=== PATIENT | female | born 1975 | race Asian ===

== ENCOUNTER 2020-11-10 09:27 | Emergency (ER) | payer OTHER, SELFPAY ==
--- NOTE | ~2020-11-10 | CT_ITS ---
EXAMINATION: CT HEAD WITHOUT CONTRAST CLINICAL INFORMATION: Headache. Rule out intracranial bleed, mass effect. COMPARISON: None TECHNIQUE: Contiguous axial imaging was performed from the skull base to vertex without intravenous administration of contrast. This CT examination was performed using dose optimization techniques as appropriate, variously including the following: *Automated exposure control *Adjustment of mA and/or kV according to patient size (this includes techniques or standardized protocols for targeted exams where dose is matched to indication/reason for exam; i.e. extremities or head) *Use of iterative reconstruction technique DLP: 646 mGy-cm FINDINGS: There is no evidence of acute intracranial hemorrhage or territorial infarction. No abnormal mass effect or midline shift is seen. Feng to white matter differentiation is well preserved. No extra-axial fluid collections are identified. The ventricles are normal in size. There is no abnormal attenuation within the brain parenchyma. The osseous structures and soft tissues are normal. The mastoid air cells and visualized portions of the paranasal sinuses are well aerated. Small mucous retention cyst along the anterior margin of the visualized left maxillary sinus is partially seen. CT/CT head/brain wo con IMPRESSION: No acute intracranial pathology. Specifically, there is no evidence of acute intracranial hemorrhage. Essentially unremarkable examination.
[2020-11-10 09:35] VITALS: BP 130/93; PULSE 68; RESP 19; TEMP 35.9; O2SAT 98; BMI 36.6
[2020-11-10 10:23] LABS: Glucose Urine UA NEG (NEG); Leukocyte Esterase Urine NEG (NEG); Nitrite Urine NEG (NEG); PH 5.5 (5.0-8.0); Urine Blood 3+ (NEG); Urine Ketones NEG (NEG); Urine Protein NEG (NEG-TRACE)
[2020-11-10 10:25] LABS: Appearance Urine HAZY; Color Urine YELLOW
[2020-11-10 10:26] LABS: UPreg QC Valid YES; Urine Pregnancy NEGATIVE (NEGATIVE)
[2020-11-10 10:35] LABS: Squamous Epithelial Cell Urine TRACE /LPF; WBC Urine 0 /HPF (0-4)
--- NOTE | 2020-11-10 11:13 | ED_ITS ---
HPI - General Adult General Chief complaint: General Medical Stated complaint: HIGH BLOOD PRESSURE Time Seen by Provider: 11/10/20 11:13 Source: patient Mode of arrival: ambulatory Limitations: no limitations History of Present Illness HPI narrative: 44-year-old female who presents emergency department for evaluation of headache, dysuria and elevated blood pressure. Patient states she has been experiencing headaches for approximately 2-3 weeks. She states that she gets them daily when she wakes up in the morning. The headache starts in the back of her neck and radiates to the front of her head. She describes the pain as a throbbing sensation which is constant and can last all day. She states the pain is 7-10 at its worst. The pain is associated with dizziness and a audible pulse in her left ear. She states she has been feeling fatigued. She denies any weight loss or weight gain. She denied fever, chills, nausea, vomiting associated with her headaches. Patient is also complaining of dysuria. She has noted painful urination which she describes as a burning sensation x1 week. She states that she has been urinating more frequently and after urinating she feels the need to urinate again but only produces small amount of urine. The patient states she started her menses today. She states that she had an urinalysis 1 week prior that was positive for white blood cells but did not start antibiotics. She denies any vaginal discharge. She denies abdominal or back pain. The patient has a history of essential hypertension and has been on Norvasc 5 mg daily for 2 years. She states that she has been checking her blood pressure over the past 1-2 weeks and she has had elevated blood pressures with her high his blood pressure being 180/110. Related Data Previous Rx's Medication Instructions Recorded doxycycline hyclate 100 mg PO Q12H 10 Days #14 tab 11/10/20 phenazopyridine [Pyridium] 200 mg PO TID 3 Days #9 tab 11/10/20 Allergies Allergy/AdvReac Type Severity Reaction Status Date / Time No Known Allergies Allergy Unverified 02/28/20 17:44 Review of Systems Review of Systems: Yes all other systems are reviewed and are negative [facility] Past Medical History [facility] Narrative: Past medical history: Hypertension, hyperlipidemia. Past surgical history bilateral tubal ligation, cholecystectomy. Social history: Patient smokes 1/2 pack of cigarettes per day times 20 years. She occasionally drinks alcohol. She denies drug use. Medical History High cholesterol Hypertension Surgical History H/O tubal ligation Social History Social History Advance Directives: Yes Advance Directives Information Provided: Yes Advance Directives on File: No Patient : No Physical Exam Vital Signs: Vital Signs: Last Vital Signs Temp 96.6 F L 11/10/20 09:35 Pulse 58 11/10/20 12:49 Resp 18 11/10/20 12:49 BP 128/76 11/10/20 12:49 Pulse Ox 98 11/10/20 09:35 Body Mass Index 36.6 Const: General: cooperative Orientation/consciousness: oriented to person and oriented to place Limitations: no limitations HENMT: Head: Yes normal to inspection, Yes normocephalic and Yes atraumatic Ears: external ears normal General nose exam: Normal external nose present Face and sinus: Yes normal facial exam Mouth: Normal oral and palatal mucosa present Throat: Yes posterior oropharynx normal Eyes: Periorbital: periorbital findings normal Eyelids: Yes eyelids normal Conjunctivae: conjunctivae normal Sclerae: sclerae normal Corneas: corneas normal Pupils: Equal, round and reactive pupils present Direct Ophthalmoscopy: normal light reflex Neck: Other: The patient has tenderness with palpation of the trapezius muscles bilaterally at the assertion of the occiput. Neck: Yes full ROM, Yes no lymphadenopathy, Yes no meningeal signs, Yes trachea midline and Yes supple Chest: Chest palpation & inspection: normal inspection of the chest and normal palpation of entire chest wall Resp: Effort & Inspection: normal respiratory effort and able to speak in complete sentences Auscultation: clear to auscultation bilaterally Cardio: Rate: regular rate Rhythm: regular rhythm Heart sounds: S1 normal heart sound present, S2 normal heart sound present and no murmurs GI: Inspection: Yes normal to inspection Palpation (GI): Soft to palpation, nontender, no guarding, not rigid and No hepatosplenomegaly present : General: Yes no CVA tenderness Back/Spine/Pelvis: Back: no CVA tenderness Cervical Spine: normal cervical lordosis Thoracic/Lumbar Spine: thoracic and lumbar spine normal to inspection Skin: Lesions: no lesions Rashes: no rashes Wounds: no wounds Neuro: General: oriented to person, oriented to place and no meningeal signs Cranial nerves: Yes CN's II-XII intact bilaterally and Yes Equal, round and reactive pupils present Cognition (Neuro): normal cognition Motor exam (neuro): 5/5 motor strength present throughout Extrem: General: Yes normal to inspection and Yes full ROM Psych: Appearance: well kempt Mental Status: mental status grossly normal Speech and movement: Normal speech and movement present Affect: normal affect Attitude: cooperative Thought process: Normal thought process present Thought content: Normal thought content present Course Course Course Narrative: 44-year-old female who presents emergency department for evaluation of headache times 2-3 weeks, dysuria x1 week and elevated blood pressures. Vital signs revealed an elevated BP of 130/93, otherwise unremarkable. Physical examination did reveal some tenderness with the palpation of the occiput and trapezius muscles otherwise was unremarkable. The patient had a urinalysis which revealed positive blood, microscopic revealed 15-29 RBCs and 0 WBCs suggested he does not have urinary tract infection. Given her symptoms however I suspect that she may have and nonspecific urethritis and I did discuss empiric antibiotic treatment with doxycycline and she did agree. I will obtain a CT scan of the patient's brain to rule out bleed, stroke, mass effect. 1414: The patient's CT scan of the brain was unremarkable. Urine test was negative. Urinalysis revealed no evidence for your infection. I did discuss nonspecific urethritis with the patient and the patient will be treated with doxycycline 100 mg twice a day for 7 days and Pyridium 200 mg 3 times a day as needed for pain. She was also advised to take Tylenol and ibuprofen for her headache and for her dysuria. She was given printed and verbal instructions and discharged home. Medical Decision Making Lab Data Labs: Lab Results 11/10/20 11/10/20 Range/Units 10:09 10:09 Urine Color YELLOW Urine Appearance HAZY Urine pH 5.5 (5.0-8.0) Ur Specific [place] 1.020 (1.005-1.025) Urine Protein NEG (NEG-TRACE) MG/DL Urine Glucose (UA) NEG (NEG) MG/DL Urine Ketones NEG (NEG) MG/DL Urine Blood 3+ H (NEG) Urine Nitrite NEG (NEG) Ur Leukocyte Esterase NEG (NEG) Urine RBC 15-29 H (0) /HPF Urine WBC 0 (0-4) /HPF Ur Squamous Epith Cells TRACE /LPF Urine Bacteria NONE /LPF Urine Test NEGATIVE (NEGATIVE) Discharge Plan Discharge Clinical Impression: Urethritis Headache Qualifiers: Headache type: unspecified Headache chronicity pattern: acute headache Intractability: not intractable Qualified Code(s): R51.9 - Headache, unspecified Hypertension Qualifiers: Hypertension type: essential hypertension Qualified Code(s): I10 - Essential (primary) hypertension Instructions: Acute Headache (ED) Additional Instructions: The CT scan of your brain was normal which is reassuring. Your urinalysis/microscopic exam revealed red blood cells only, you did not have any white blood cells or bacteria suggesting that you do not have a urine infection. Your symptoms are consistent with inflammation/infection of the urethra (the tube that you pee through). I want to treat you with an antibiotic to see if this improves your symptoms. Take doxycycline 100 mg pills, 1 pill twice a day for 7 days. Take Pyridium(phenazopyridine) 200 mg pills, 1 pill 3 times a day as needed for burning /discomfort with urination. Take ibuprofen 200 mg pills, 3 pills every 6 hours as needed for pain. Take Tylenol (acetaminophen) 500 mg pills, 2 pills every 4 to 6 hours as needed for pain. Follow-up with your doctor in 2 days. Please return to the emergency department if your symptoms get worse or if you develop any symptoms that are concerning to you. Prescriptions: New doxycycline hyclate 100 mg tablet 100 mg PO Q12H 10 Days Qty: 14 RF: 0 phenazopyridine [Pyridium] 200 mg tablet 200 mg PO TID 3 Days Qty: 9 RF: 0
[2020-11-10 12:49] VITALS: BP 128/76; PULSE 58; RESP 18
== END 2020-11-10 14:40 | disposition home or self-care (01) ==
PROVIDERS: Emergency Provider Emergency Medicine Emergency Medical Services; PCP Internal Medicine
DX: N34.2 Other urethritis (principal); R51.9 Headache, unspecified; I10 Essential (primary) hypertension; E78.5 Hyperlipidemia, unspecified
CPT/HCPCS: 70450; 81001; 81025; 99283; 99284

== ENCOUNTER 2021-04-06 10:56 | Emergency (ER) | payer OTHER, SELFPAY ==
[2021-04-06 11:07] VITALS: BP 136/83; PULSE 89; RESP 16; TEMP 36.9; O2SAT 98; BMI 35.6
--- NOTE | 2021-04-06 13:00 | ED_ITS ---
HPI - General Adult General Chief complaint: General Medical Stated complaint: Hemorrhoid Time Seen by Provider: 04/06/21 12:59 Source: patient Mode of arrival: ambulatory Limitations: no limitations History of Present Illness HPI narrative: Patient presents to ED for rectal pain due to hemorrhoids. Patient states last week multiple diarrhea which caused her hemorrhoids to become painful. Patient came to the ED for evaluation. Patient states no abdominal pain or any present rectal bleeding. Patient denies any trauma. Patient states history of hemorrhoids Related Data Previous Rx's Medication Instructions Recorded doxycycline hyclate 100 mg tablet 100 mg PO Q12H 10 Days #14 tab 11/10/20 phenazopyridine 200 mg tablet 200 mg PO TID 3 Days #9 tab 11/10/20 (Pyridium) docusate sodium 100 mg capsule 100 mg PO BID 7 Days #14 cap 04/06/21 (Colace) lidocaine 2 %-hydrocortisone 2 1 appl [place] BID PRN 7 Days #7 ea 04/06/21 %-aloe vera rectal kit ([place]) naproxen 500 mg tablet 500 mg PO BID PRN #20 tab 04/06/21 Allergies Allergy/AdvReac Type Severity Reaction Status Date / Time No Known Allergies Allergy Unverified 02/28/20 17:44 Review of Systems Review of Systems: Yes all other systems are reviewed and are negative Constitutional: Constitutional: Reports as per HPI and Reports no additional constitutional complaints Eyes: Eyes: Reports as per HPI and Reports no additional eye complaints ENT: Reports system reviewed and no additional complaints, except as doc umented and Reports as per HPI Cardiovascular: Cardiovascular: Reports as per HPI and Reports no additional cardiovascular complaints Respiratory: Respiratory: Reports as per HPI and Reports no additional respiratory complaints Gastrointestinal: Gastrointestinal: Reports as per HPI and Reports no additional gastrointestinal complaints Comments: Hemorrhoids Genitourinary: Genitourinary: Reports no additional female genitourinary complaints and Reports as per HPI Musculoskeletal: Musculoskeletal: Reports no additional musculoskeletal complaints and Reports as per HPI Neurologic: Reports system reviewed and no additional complaints, except as documented and Reports as per HPI Psychiatric: Psychiatric: Reports no additional psychiatric complaints and Reports as per HPI [facility] Past Medical History Medical History High cholesterol Hypertension Surgical History H/O tubal ligation Social History Social History Advance Directives: No Advance Directives Information Provided: No Patient : No Physical Exam Vital Signs: Vital Signs: Last Vital Signs Temp 98.4 F 04/06/21 11:07 Pulse 89 04/06/21 11:07 Resp 16 04/06/21 11:07 BP 136/83 04/06/21 11:07 Pulse Ox 98 04/06/21 11:07 Body Mass Index 35.6 Const: General: cooperative, healthy appearing, comfortable, no acute distress, well developed, alert, awake and Physically active HENMT: Head: Yes normal to inspection, Yes No palpable skull fracture present, Yes normocephalic, Yes atraumatic and No abrasion Eyes: General: appearance normal, both eyes and all related structures Neck: Neck: Yes normal visual inspection, Yes full ROM, Yes no lymphadenopathy, Yes no meningeal signs, Yes trachea midline, Yes supple, No anterior neck swelling and No tender Chest: Chest palpation & inspection: normal inspection of the chest and normal palpation of entire chest wall Resp: Effort & Inspection: normal respiratory effort and able to speak in complete sentences Auscultation: clear to auscultation bilaterally Cardio: Jugular venous distension: no JVD Heart sounds: S1 normal heart sound present and S2 normal heart sound present GI: Other: Negative for any anal abscess. Hemhrroids are pink and not dusky. Inspection: Yes normal to inspection and No abdominal wall ecchymosis Palpation (GI): Soft to palpation, not firm, nontender, no guarding and not rigid Rectal Exam - Female: External hemorrhoid(s) present (To external hemorrhoids that are tender,but pink. does not appear thrombose), No fecal impaction, No Lesions present (GI) and No Anal fissure(s) present : General: No CVA tenderness Back/Spine/Pelvis: Back: No CVA tenderness and No back tenderness Skin: General skin exam: no rashes or lesions noted and elasticity normal Neuro: General: gait normal, no meningeal signs and CN's II-XI intact bilaterally Cranial nerves: Yes CN's II-XII intact bilaterally Extrem: General: Yes normal to inspection and Yes full ROM Psych: Appearance: grossly normal, well kempt and not disheveled Course Course Course Narrative: History physical exam does not indicate thrombosed hemorrhoids. Hemorrhoid is tender but pink. No indication for excision. Reevaluation(s) Reevaluation #1: Patient informed to follow-up with surgery that she will be referred to by us. Patient given [place]. Patient will be discharged with Colace and pain meds. Patient informed to return to ED if symptoms worsen, profuse rectal bleeding, or any other concerning symptoms. Time: 13:04 Medical Decision Making MDM Narrative Medical decision making narrative: External hemmhoirds Discharge Plan Discharge Clinical Impression: External hemorrhoids Patient Disposition: Home, Self-Care Instructions: Hemorrhoids (ED), Sitz [place] (DC) Additional Instructions: Return to the ED immediately for worsening rectal pain, profuse bleeding, fever, chills, abdominal pain, nausea, vomiting, or any other concerning symptoms. Prescriptions: New [place] Kit 2-2 % kit 1 appl VT BID PRN (Reason: hemmorhoids) 7 Days Qty: 7 RF: 0 docusate sodium [Colace] 100 mg capsule 100 mg PO BID 7 Days Qty: 14 RF: 0 naproxen 500 mg tablet 500 mg PO BID PRN (Reason: pain) Qty: 20 RF: 0 No Action doxycycline hyclate 100 mg tablet 100 mg PO Q12H 10 Days Qty: 14 RF: 0 phenazopyridine [Pyridium] 200 mg tablet 200 mg PO TID 3 Days Qty: 9 RF: 0 Referrals: Sudheer Garza MD [Physician] - 2 days (Rectal pain due to external hemorrhoids that are tender but not yet thrombosed) Stand Alone Forms: Work/School Release Interventions: ED Discharge Assessment Last Done: 04/06/21 13:26 Discharge Date/Time: 04/06/21 13:27 Print Language: Malian
--- NOTE | 2021-04-06 13:20 | PC.NURSE ---
assisted md with rectal exam. pt tolerated procedure well.
== END 2021-04-06 13:27 | disposition home or self-care (01) ==
PROVIDERS: Emergency Provider Emergency Medicine; PCP Internal Medicine
DX: K64.4 Residual hemorrhoidal skin tags (principal); I10 Essential (primary) hypertension
CPT/HCPCS: 99283

== ENCOUNTER 2022-03-05 16:01 | Emergency (ER) | payer OTHER, SELFPAY ==
[2022-03-05 16:03] VITALS: BP 150/74; PULSE 84; RESP 18; TEMP 36.2; O2SAT 97; BMI 34.7
== END 2022-03-05 17:41 | disposition left against medical advice (07) ==
PROVIDERS: Emergency Provider Emergency Medicine
DX: S09.90XA Unspecified injury of head, initial encounter (principal); S39.92XA Unspecified injury of lower back, initial encounter; W10.8XXA Fall (on) (from) other stairs and steps, initial encounter; Y93.9 Activity, unspecified; Y92.9 Unspecified place or not applicable; Y99.9 Unspecified external cause status
CPT/HCPCS: 99281

== ENCOUNTER 2022-03-09 06:58 | Emergency (ER) | payer OTHER, SELFPAY ==
--- NOTE | ~2022-03-09 | CT_ITS ---
EXAMINATION: CT HEAD WITHOUT CONTRAST CLINICAL INFORMATION: Hit head COMPARISON: CT head from 11/10/2020 TECHNIQUE: Contiguous axial imaging was performed from the skull base to vertex without intravenous administration of contrast. This CT examination was performed using dose optimization techniques as appropriate, variously including the following: *Automated exposure control *Adjustment of mA and/or kV according to patient size (this includes techniques or standardized protocols for targeted exams where dose is matched to indication/reason for exam; i.e. extremities or head) *Use of iterative reconstruction technique DLP: 1216 mGy-cm FINDINGS: There is no evidence of acute intracranial hemorrhage or territorial infarction. No abnormal mass effect or midline shift is seen. Feng to white matter differentiation is well preserved. No extra-axial fluid collections are identified. The ventricles are normal in size. There is no abnormal attenuation within the brain parenchyma. The osseous structures and soft tissues are normal. The mastoid air cells and visualized portions of the paranasal sinuses are well aerated. CT/CT cervical spine wo IV con IMPRESSION: No acute intracranial pathology. EXAMINATION: Noncontrast CT scan of the cervical spine. INDICATION: Hit head COMPARISON: None. TECHNIQUE: Helical, multidetector axial images were obtained from the occiput to the upper thorax. Coronal and sagittal reformats of the cervical spine were provided for interpretation. DLP: 1216 mGy-cm FINDINGS: No acute fractures or dislocations of the cervical spine are seen. Straightening of normal cervical curvature which may be secondary to patient positioning versus muscle spasm. Anatomic alignment and positioning of the vertebral bodies and posterior elements is noted. The atlantoaxial joint and craniovertebral articulations are normal without evidence of subluxation. There is no prevertebral soft tissue swelling. The thyroid gland and visualized portions of the lung apices and mediastinum are unremarkable. IMPRESSION: 1. No acute visible fracture or dislocation. 2. Straightening of normal cervical curvature which may be secondary to patient positioning versus muscle spasm.
--- NOTE | ~2022-03-09 | XR_ITS ---
EXAMINATION: XR LUMBOSACRAL SPINE CLINICAL INFORMATION: Fall COMPARISON: 09/20/2019 TECHNIQUE: Three views of the lumbosacral spine. FINDINGS: There is minimal grade 1 anterolisthesis of L4 on L5. Alignment throughout the lumbar spine is otherwise anatomic. Vertebral body heights are maintained. A few minimal scattered endplate osteophytes are present. There is mild to moderate disc space narrowing at L5-S1. There is suspected facet arthropathy of the lower lumbar spine. Sacroiliac joints appear intact with degenerative change. XR/XR lumbar spine 2-3V IMPRESSION: No acute findings identified. Chronic appearing/degenerative changes of the lower lumbar spine.
[2022-03-09 07:03] VITALS: BP 153/100; PULSE 76; RESP 18; TEMP 36.7; O2SAT 98; BMI 34.7
[2022-03-09 09:32] VITALS: BP 134/79; PULSE 69; RESP 16; TEMP 36.6; O2SAT 98
--- NOTE | 2022-03-09 11:00 | ED.GENADULT ---
HPI - General Adult General Chief complaint: Fall Stated complaint: FALL HEAD INJ Time Seen by Provider: 03/09/22 09:01 Source: patient Mode of arrival: ambulatory Limitations: no limitations History of Present Illness HPI narrative: 46-year-old healthy woman presents to the ED for posterior headache/neck pain and lower back pain after falling down stairs. Patient states she fell last and fell unto her back and back of head when she slipped on the stairs in the rain. patient was sent to the ED for PCP for head CT scan to rule out bleed. Patient DENIES ANY FACIAL DROOP, SLURRED SPEECH, WEAKNESS, DIZZINESS, CHEST PAIN, SHORTNESS OF BREATH, ABDOMINAL PAIN, RECTAL BLEEDING, VOMITING BLOOD, OR ANY OTHER CONCERNING SYMPTOMS. Related Data Previous Rx's Medication Instructions Recorded doxycycline hyclate 100 mg tablet 100 mg PO Q12H 10 days #14 tabs 11/10/20 phenazopyridine 200 mg tablet 200 mg PO TID 3 days #9 tabs 11/10/20 (Pyridium) docusate sodium 100 mg capsule 100 mg PO BID 7 days #14 caps 04/06/21 (Colace) lidocaine 2 %-hydrocortisone [address] BID PRN hemmorhoids 7 04/06/21 %-aloe vera rectal kit ([place]) days #7 ea naproxen 500 mg tablet 500 mg PO BID PRN pain #20 tabs 04/06/21 naproxen 500 mg tablet 500 mg PO BID PRN pain 10 days #20 03/09/22 tabs prednisone 20 mg tablet 40 mg PO DAILY 5 days #10 tabs 03/09/22 Allergies Allergy/AdvReac Type Severity Reaction Status Date / Time No Known Allergies Allergy Unverified 02/28/20 17:44 Review of Systems Review of Systems: FALL POSTERIOR HEADACHE/NECK PAIN. LOWER BACK PAIN Yes all other systems are reviewed and are negative PMF Past Medical History Medical History High cholesterol Hypertension Surgical History H/O tubal ligation Social History Social History Patient Tobacco Use Status: Current everyday Tobacco user Advance Directives: No Advance Directives Information Provided: No Patient : No Physical Exam ED Vital Signs: Vital Signs - 24 hr 03/09/22 07:03 03/09/22 09:32 Temperature 98.1 F 98 F Pulse Rate 76 69 Respiratory Rate 18 16 Blood Pressure 153/100 H 134/79 Pulse Oximetry 98 98 Oxygen Delivery Method Room Air Room Air BMI result Body Mass Index 34.7 Const General: cooperative, healthy appearing, comfortable, no acute distress, well developed, alert and awake Orientation/consciousness: oriented to time and patient oriented x3 HENMT Head: Yes normal to inspection, Yes No palpable skull fracture present, Yes normocephalic, Yes atraumatic and No abrasion Head images: 1. TENDERNESS ON PALPATION. Eyes General: appearance normal, both eyes and all related structures Neck Neck: Yes normal visual inspection, Yes full ROM, Yes no lymphadenopathy, Yes no meningeal signs, Yes trachea midline, Yes supple, No anterior neck swelling and Yes tender (POSTERIOR CIERVICAL) Chest Chest palpation & inspection: normal inspection of the chest and normal palpation of entire chest wall Resp Effort & Inspection: normal respiratory effort and able to speak in complete sentences Auscultation: clear to auscultation bilaterally Cardio Jugular venous distension: no JVD Heart sounds: S1 normal heart sound present and S2 normal heart sound present GI Inspection: Yes normal to inspection and No abdominal wall ecchymosis Palpation (GI): Soft to palpation, not firm, nontender, no guarding and not rigid General: No CVA tenderness and Yes no CVA tenderness Back/Spine/Pelvis Back: no CVA tenderness, No CVA tenderness and back tenderness (LUMBAR) Skin General skin exam: no rashes or lesions noted, elasticity normal and turgor normal Neuro General: oriented to time, patient oriented x3, gait normal, no meningeal signs and CN's II-XI intact bilaterally Cranial nerves: Yes CN's II-XII intact bilaterally Extrem General: Yes normal to inspection and Yes full ROM Psych Appearance: grossly normal, well kempt and not disheveled Course Course Course Narrative: PATIENT WELL-APPEARING. WILL SEND FOR IMAGING. Patient's main complaint is posterior neck and lower back pain after falling this past . Reevaluation(s) Reevaluation #1: IMAGES ARE NORMAL. PATIENT IS SAFE FOR DISCHARGE Time: 11:33 Medical Decision Making MDM Narrative Medical decision making narrative: FALL Discharge Plan Discharge Clinical Impression: Fall, Head injury Patient Disposition: Home, Self-Care Instructions: Head Injury (ED), Fall Prevention (ED) Additional Instructions: YOUR IMAGES CAME BACK NORMAL. PLEASE FOLLOW-UP WITH YOUR PRIMARY CARE PROVIDER. RETURN TO THE ED IMMEDIATELY FOR URINARY/BOWEL INCONTINENCE, NAUSEA, VOMITING, CHEST PAIN, SHORTNESS OF BREATH, SEVERE HEADACHE, PHOTOPHOBIA, BLURRY VISION, NECK STIFFNESS, FEVER, CHILLS ABDOMINAL PAIN, RECTAL BLEEDING, VOMITING BLOOD, BLOOD IN STOOL, OR ANY OTHER CONCERNING SYMPTOMS. Prescriptions: New naproxen 500 mg tablet 500 mg PO BID PRN (Reason: pain) 10 Days Qty: 20 0RF prednisone 20 mg tablet 40 mg PO DAILY 5 Days Qty: 10 0RF No Action doxycycline hyclate 100 mg tablet 100 mg PO Q12H 10 Days Qty: 14 0RF phenazopyridine [Pyridium] 200 mg tablet 200 mg PO TID 3 Days Qty: 9 0RF [place] Kit 2-2 % kit [address] BID PRN (Reason: hemmorhoids) 7 Days Qty: 7 0RF docusate sodium [Colace] 100 mg capsule 100 mg PO BID 7 Days Qty: 14 0RF naproxen 500 mg tablet 500 mg PO BID PRN (Reason: pain) Qty: 20 0RF Stand Alone Forms: Work/School Release Interventions: ED Discharge Assessment Last Done: 03/09/22 12:03 Discharge Date/Time: 03/09/22 12:04 Print Language: Japanese
--- NOTE | 2022-03-09 11:16 | PC.NURSE ---
patient a/ox4 . valerie . heart rate regular 92 beats . lungs clear . skin pink warm and dry . abdomen soft . non tender . positive bowel sounds in all quadrants . patients reports fall at home down a few stairs hitting back of neck , feeling sore but managing pain level 4/10 at home with ibuprophen . No bruising or trauma noted to area . Patient waiting on results of CT/ Xray results . patient aware of plan of care .
== END 2022-03-09 12:04 | disposition home or self-care (01) ==
PROVIDERS: Emergency Provider Emergency Medicine
DX: S09.90XA Unspecified injury of head, initial encounter (principal); R51.9 Headache, unspecified; M54.2 Cervicalgia; M54.50 Low back pain, unspecified; F17.200 Nicotine dependence, unspecified, uncomplicated; W01.0XXA Fall on same level from slipping, tripping and stumbling without subsequent striking against object, initial encounter; Y93.9 Activity, unspecified; Y92.9 Unspecified place or not applicable; Y99.9 Unspecified external cause status; Z71.6 Tobacco abuse counseling; Z79.899 Other long term (current) drug therapy
CPT/HCPCS: 70450; 72100; 72125; 99284

== ENCOUNTER 2022-10-16 05:29 | Emergency (ER) | payer OTHER, SELFPAY ==
[2022-10-16 05:44] VITALS: BP 137/90; PULSE 79; RESP 16; TEMP 37.1; O2SAT 98; BMI 35.7
[2022-10-16 07:18] VITALS: BP 141/92; PULSE 67; RESP 17; TEMP 36.8; O2SAT 98
--- NOTE | 2022-10-16 07:27 | ED.EYEPROB ---
HPI - Eye Problem General Chief complaint: Eye Problems Stated complaint: [place] Time Seen by Provider: 10/16/22 07:19 Source: patient Mode of arrival: ambulatory Limitations: no limitations History of Present Illness HPI Narrative: This is 46 years old female presented to the emergency department complaining of right eye redness and drainage from the right eye, denies any other medical problem no headache no vomiting no vision problem chief complaint: eye redness Onset (ago): hour(s) (4) Onset description: gradual Duration: constant Location: right eye Eye Symptoms: burning and redness Place: home Mechanism: none Severity: mild If Pain, Quality: burning Associated symptoms: none Related Data Previous Rx's Medication Instructions Recorded doxycycline hyclate 100 mg tablet 100 mg PO Q12H 10 days #14 tabs 11/10/20 phenazopyridine 200 mg tablet 200 mg PO TID 3 days #9 tabs 11/10/20 (Pyridium) docusate sodium 100 mg capsule 100 mg PO BID 7 days #14 caps 04/06/21 (Colace) lidocaine 2 %-hydrocortisone 2 1 appl [place] BID PRN hemmorhoids 7 04/06/21 %-aloe vera rectal kit ([place]) days #7 ea naproxen 500 mg tablet 500 mg PO BID PRN pain #20 tabs 04/06/21 naproxen 500 mg tablet 500 mg PO BID PRN pain 10 days #20 03/09/22 tabs prednisone 20 mg tablet 40 mg PO DAILY 5 days #10 tabs 03/09/22 erythromycin 5 mg/gram (0.5 %) eye 1 appl ophthalmic (eye) Q8H #3.5 10/16/22 ointment grams Allergies Allergy/AdvReac Type Severity Reaction Status Date / Time No Known Allergies Allergy Unverified 02/28/20 17:44 Review of Systems Constitutional: Constitutional: Reports no additional constitutional complaints Eyes: Eyes: Denies blind spots, Denies blurry vision, Denies change in vision, Denies diplopia, Reports eye discharge, Denies loss of vision and Denies seeing flashes Respiratory: Respiratory: Reports no additional respiratory complaints Neurologic: Denies loss of vision PMFSH Past Medical History Medical History High cholesterol Hypertension Surgical History H/O tubal ligation Social History Social History Patient Tobacco Use Status: Current everyday Tobacco user Smoked in Last 30 Days: No Advance Directives: No Advance Directives Information Provided: Yes Physical Exam Vital Signs: Vital Signs: Last Vital Signs Temp 98.2 F 10/16/22 07:18 Pulse 67 10/16/22 07:18 Resp 17 10/16/22 07:18 BP 141/92 H 10/16/22 07:18 Pulse Ox 98 10/16/22 07:18 O2 Del Method Room Air 10/16/22 07:18 BMI result Body Mass Index 35.7 She looks well she is not toxic Const: General: cooperative, healthy appearing, comfortable, no acute distress, well developed, alert, awake and Physically active Nutritional Appearance: average body habitus Orientation/consciousness: patient oriented x3 HEENT: Head: Yes normal to inspection General nose exam: Normal external nose present Face and sinus: Yes normal facial exam Eyes: Eyelids: Yes eyelids normal Conjunctivae: conjunctival abnormal (redness) right Sclerae: sclerae normal Corneas: corneas normal EOM: EOMs intact bilaterally Neck: Neck: Yes normal visual inspection Chest: Chest palpation & inspection: normal inspection of the chest Resp: Effort & Inspection: normal respiratory effort Cardio: Jugular venous distension: no JVD Rate: regular rate GI: Inspection: Yes normal to inspection Neuro: General: patient oriented x3, gait normal and CN's II-XI intact bilaterally Cranial nerves: Yes Facial sensation intact/muscles of mastication intact Medical Decision Making Medical Decision Making MDM Narrative: Patient presented with right eye redness and drainage the picture is consistent with conjunctivitis we milan give her antibiotic Differential Diagnosis Differential Diagnoses: The differential diagnosis associated with the presentation includes Conjunctivitis/iritis/scleritis Admission/Observation Consideration of admission/observation: Escalation of care including admission/observation considered Tests considered The following testing was considered but not selected: CT of orbit not done because clinically appears to be conjunctivitis Discharge Plan Discharge Clinical Impression: Acute bacterial conjunctivitis of right eye Patient Disposition: Home, Self-Care Instructions: Conjunctivitis (ED) Additional Instructions: Follow-up with your primary care physician, he few I does not get better in [address] Romo [phone] Prescriptions: New erythromycin 5 mg/gram (0.5 %) ointment 1 appl ophthalmic (eye) Q8H Qty: 3.5 0RF Rx Instructions: apply OD 3 X day X 5 Days No Action doxycycline hyclate 100 mg tablet 100 mg PO Q12H 10 Days Qty: 14 0RF phenazopyridine [Pyridium] 200 mg tablet 200 mg PO TID 3 Days Qty: 9 0RF naproxen 500 mg tablet 500 mg PO BID PRN (Reason: pain) 10 Days Qty: 20 0RF prednisone 20 mg tablet 40 mg PO DAILY 5 Days Qty: 10 0RF [place] Kit 2-2 % kit 1 appl [place] BID PRN (Reason: hemmorhoids) 7 Days Qty: 7 0RF docusate sodium [Colace] 100 mg capsule 100 mg PO BID 7 Days Qty: 14 0RF naproxen 500 mg tablet 500 mg PO BID PRN (Reason: pain) Qty: 20 0RF Referrals: Physician,Unknown J [Primary Care Provider] - 2 days Interventions: ED Discharge Assessment Last Done: 10/16/22 07:41 Discharge Date/Time: 10/16/22 07:42
--- NOTE | 2022-10-16 07:30 | PC.NURSE ---
Patient here for question of pink eye in right eye, eye does not seem to have any discharge and mild redness. MD in to see patient and will prescribe an antx for her to take. She denies any pain, and other neuro symptoms at this time.
== END 2022-10-16 07:42 | disposition home or self-care (01) ==
PROVIDERS: Emergency Provider Emergency Medicine
DX: H10.021 Other mucopurulent conjunctivitis, right eye (principal)
CPT/HCPCS: 99283; 99284

== ENCOUNTER → 2023-01-28 08:46 | Outpatient (BNVA) | payer SELFPAY | DX: R76.11 Nonspecific reaction to tuberculin skin test without active tuberculosis (principal) ==

== ENCOUNTER → 2023-02-07 12:25 | Outpatient (BNVA) | payer SELFPAY | PROVIDERS: Visit Provider Physician Assistant Medical | DX: Z02.1 Encounter for pre-employment examination (principal) ==

== ENCOUNTER 2023-08-15 08:17 | Emergency (ER) | payer SELFPAY ==
[2023-08-15 08:33] VITALS: BP 151/85; PULSE 77; RESP 17; TEMP 36.6; O2SAT 97; BMI 36.7
--- NOTE | 2023-08-15 09:04 | ED.BACK ---
HPI - Back Pain/Injury General Chief Complaint: Back Pain/Injury Stated Complaint: Back pain/leg pain Time Seen by Provider: 08/15/23 08:54 Source: patient Mode of arrival: ambulatory Limitations: no limitations History of Present Illness HPI Narrative: 47 year old female with pmhx significant for chronic back pain presents to the emergency department this morning for evaluation of acute on chronic atraumatic back pain x4 days. Pain originates along the left lower back, radiates to the lateral and anterior thigh to the knee. She has been taking Tylenol and ibuprofen at home without relief. Admits that the pain was so bad last night she can not sleep. Denies new trauma/injury/fall. Endorses history of sciatica at 19 years old and states that this feels similar. Reports mentioning this to her primary care provider and was supposed to have physical therapy however this fell through. Denies fever, chills, abdominal pain, flank pain, dysuria, hematuria, numbness/tingling/weakness, saddle anesthesia, bowel or bladder incontinence or retention. She adds that she is noticed bright red blood per rectum with 2 bowel movements over the last week. Endorses blood with wiping and in the toilet bowl. This occurs intermittently, a majority of her other bowel movements over this last week did not have blood in them. She has a history of hemorrhoids and states this seems similar. Denies pain. Not on AC. Related Data Previous Rx's Medication Instructions Recorded doxycycline hyclate 100 mg tablet 100 mg PO Q12H 10 days #14 tabs 11/10/20 phenazopyridine 200 mg tablet 200 mg PO TID 3 days #9 tabs 11/10/20 (Pyridium) docusate sodium 100 mg capsule 100 mg PO BID 7 days #14 caps 04/06/21 (Colace) lidocaine 2 %-hydrocortisone 2 1 appl [place] BID PRN hemmorhoids 7 04/06/21 %-aloe vera rectal kit ([place]) days #7 ea naproxen 500 mg tablet 500 mg PO BID PRN pain #20 tabs 04/06/21 naproxen 500 mg tablet 500 mg PO BID PRN pain 10 days #20 03/09/22 tabs prednisone 20 mg tablet 40 mg (2 x 20 mg) PO DAILY 5 days 03/09/22 #10 tabs erythromycin 5 mg/gram (0.5 %) eye 1 appl ophthalmic (eye) Q8H #3.5 10/16/22 ointment grams cyclobenzaprine 5 mg tablet 5 mg PO BEDTIME PRN muscle spasm 08/15/23 #10 tabs lidocaine 5 % topical patch 1 patch topical DAILY #15 ea 08/15/23 (Lidoderm) Allergies Allergy/AdvReac Type Severity Reaction Status Date / Time No Known Allergies Allergy Unverified 02/28/20 17:44 Review of Systems Review of Systems: Constitutional: No fever, chills, fatigue, night sweats, weight changes ENT/Mouth: No ear pain, hearing loss, nasal congestion, sinus pain, rhinorrhea, sore throat Eyes: No eye pain, swelling, redness, vision changes, discharge Cardio: No chest pain, palpitations, BARRY, orthopnea, peripheral edema Pulm: No SOB, cough, sputum, wheezing, dyspnea, hemoptysis GI: No nausea, vomiting, hematemesis, abdominal pain, diarrhea, constipation, hematochezia, melena : No irregular bleeding, dysuria, frequency, urgency, hesitancy, hematuria, flank pain, urinary flow changes, urinary incontinence or retention MSK: +back pain, No neck pain, joint pain, myalgias Skin: No lesions, rashes Neuro: No weakness, numbness, paresthesias, LOC, dizziness, headache All other systems reviewed and are negative. [facility] Past Medical History Attestation statement: The following information was validated with the patient. Source: old records reviewed and nursing notes reviewed Medical History High cholesterol Hypertension Surgical History H/O tubal ligation Social History Social History Unable to assess alcohol history related to: Unknown Patient Tobacco Use Status: Current everyday Tobacco user Smoked in Last 30 Days: No Use of substances other than those prescribed or required for medical reasons: No Advance Directives: No Physical Exam Vital Signs: Vital Signs: Last Vital Signs Temp 97.9 F 08/15/23 08:33 Pulse 77 08/15/23 08:33 Resp 17 08/15/23 08:33 BP 151/85 H 08/15/23 08:33 Pulse Ox 97 08/15/23 08:33 O2 Del Method Room Air 08/15/23 08:33 BMI result Body Mass Index 36.7 Vital signs stable, afebrile Const: General: cooperative, healthy appearing, comfortable, no acute distress, alert, awake and Physically active Orientation/consciousness: patient oriented x3 HEENT: Head: Yes normal to inspection, Yes normocephalic and Yes atraumatic Eyes: General: appearance normal, both eyes and all related structures Conjunctivae: conjunctivae normal Sclerae: sclerae normal Pupils: Equal, round and reactive pupils present EOM: EOMs intact bilaterally Neck: Other: + no cervical midline spinous tenderness or step-off deformity. Neck: Yes normal visual inspection, Yes full ROM and Yes no meningeal signs Resp: Effort & Inspection: normal respiratory effort Auscultation: clear to auscultation bilaterally Cardio: Rate: regular rate Rhythm: regular rhythm : Other: + RANCHO deferred per patient General: Yes no CVA tenderness Back/Spine/Pelvis: Other: No midline spinous tenderness. No paraspinal muscle tenderness. No step off deformity. Back: no CVA tenderness Skin: General skin exam: no rashes or lesions noted Neuro: Other: Strength 5/5 intact throughout.? No saddle anesthesia.? Sensation intact to light touch.? Neurovascular intact distally.? General: patient oriented x3, gait normal and no meningeal signs Cranial nerves: Yes Equal, round and reactive pupils present Gait exam (Neuro): Normal gait present Extrem: Other: + tender to palpation over lateral and anterior left thigh. Full ROM to left hip and knee intact without pain. 2+ DP/PT pulses. Medical Decision Making Medical Decision Making [facility] Narrative: 47 year old female with pmhx significant for chronic back pain presents to the emergency department this morning for evaluation of acute on chronic atraumatic back pain x4 days. Patient hypertensive to 151/85, vitals otherwise WNL. Afebrile. She is nontoxic-appearing and in no acute distress. No midline spinous tenderness or step-off deformity. RRR. Lungs CTA b/l. No paraspinal muscle tenderness to palpation. Tender to palpation over the lateral and anterior left thigh. Full ROM to left hip intact without pain. 2+ DP/PT pulses. No CVAT bilaterally. RANCHO deferred per patient. Symptoms and physical exam consistent with sciatica. There is low suspicion for fracture, subluxation given atraumatic nature. History and presentation is not consistent with cauda equina, epidural abscess or cord compression. Plan to discharge patient home with muscle relaxer and lidocaine patches. Given intermittent episodes of painless BRBPR and history of hemorrhoids, educated patient on Sitz baths. Discussed worrisome signs and symptoms of when to return to the ED. all questions answered at this time. Patient is agreeable disposition and stable for discharge. Differential Diagnosis Differential Diagnoses: The differential diagnosis associated with the presentation includes as above Admission/Observation Not indicated. External Record Review External record reviewed: Inpatient record Tests considered The following testing was considered but not selected: I considered obtaining imaging of the lumbar spine/pelvis however pain is atraumatic and consistent with sciatica, imaging not warranted at this time. Prescription Management I considered prescription management with: Other (Lidocaine patches, Flexeril) Chronic Conditions Patient?s care impacted by: Other (Chronic back pain) Discharge Plan Discharge Clinical Impression: Sciatica, Hemorrhoids Patient Disposition: Home, Self-Care Instructions: Hemorrhoids (ED), Sciatica (ED), Sitz Bath (DC) Additional Instructions: You are evaluated in the ED today for low back pain. Your presentation is consistent with sciatica. Avoid bending, lifting, or twisting. Use ice several times per day for 20 minutes at a time for the next 48 hours and then change to heat. Flexeril is a muscle relaxer. Take this at night as it makes you drowsy. Do not drive, drink alcohol, or operate machinery while taking it. Lidoderm patches are numbing patches. Apply to painful areas. In addition you may take Tylenol and Ibuprofen at home. Please follow-up with your primary care provider and ask about referral to physical therapy. You have also been provided with low back exercises to try at home. Please refer to the Sitz bath resource for hemorrhoid management. If bleeding continues, you are unable to control the bleeding, or your stool becomes dark, please return to the ED. If your pain worsens, if you develop new numbness, tingling, weakness, loss of bowel or bladder function call 911 or return to the ER immediately for evaluation. Prescriptions: New cyclobenzaprine 5 mg tablet 5 mg PO BEDTIME PRN (Reason: muscle spasm) Qty: 10 0RF lidocaine [Lidoderm] 5 % adhesive patch,medicated 1 patch topical DAILY Qty: 15 0RF Rx Instructions: leave on most painful area for up to 12 hrs No Action doxycycline hyclate 100 mg tablet 100 mg PO Q12H 10 Days Qty: 14 0RF phenazopyridine [Pyridium] 200 mg tablet 200 mg PO TID 3 Days Qty: 9 0RF naproxen 500 mg tablet 500 mg PO BID PRN (Reason: pain) 10 Days Qty: 20 0RF prednisone 20 mg tablet 40 mg PO DAILY 5 Days Qty: 10 0RF [place] Kit 2-2 % kit 1 appl [place] BID PRN (Reason: hemmorhoids) 7 Days Qty: 7 0RF docusate sodium [Colace] 100 mg capsule 100 mg PO BID 7 Days Qty: 14 0RF naproxen 500 mg tablet 500 mg PO BID PRN (Reason: pain) Qty: 20 0RF erythromycin 5 mg/gram (0.5 %) ointment 1 appl ophthalmic (eye) Q8H Qty: 3.5 0RF Rx Instructions: apply OD 3 X day X 5 Days Stand Alone Forms: Work/School Release
== END 2023-08-15 09:47 | disposition home or self-care (01) ==
PROVIDERS: Emergency Provider Emergency Medicine
DX: M54.30 Sciatica, unspecified side (principal); K64.9 Unspecified hemorrhoids; I10 Essential (primary) hypertension
CPT/HCPCS: 99283

== ENCOUNTER → 2024-01-30 09:56 | Outpatient (BNVA) | payer SELFPAY | DX: R76.11 Nonspecific reaction to tuberculin skin test without active tuberculosis (principal) ==

== ENCOUNTER 2024-05-21 22:04 | Emergency (ER) | payer SELFPAY ==
--- NOTE | ~2024-05-21 | XR_ITS ---
EXAMINATION: XR CHEST CLINICAL INFORMATION: cough COMPARISON: Chest radiograph dated 09/20/2019 TECHNIQUE: Frontal view of the chest was obtained. FINDINGS: No significant abnormality is noted involving the heart, lungs, mediastinum, bony thorax or soft tissues. XR/XR chest 1V IMPRESSION: Unremarkable examination. Electronically signed by: Caitlin Mendiola MD 05/21/2024 11:28 PM [facility]
[2024-05-21 22:33] VITALS: BP 165/85; PULSE 80; RESP 16; TEMP 36.6; O2SAT 99; BMI 34.5
[2024-05-21 23:27] LABS: Influenza A PCR NEGATIVE (Negative); Influenza B PCR NEGATIVE (Negative); Resp Syncy Virus RNA Qual PCR NEGATIVE (Negative); SARS COV2 PCR INHOUSE NEGATIVE (Negative)
[2024-05-21 23:34] LABS: IDNOW Serial# 08D9AD1C; Strep A Nucleic Acid Negative (Negative)
--- NOTE | 2024-05-22 01:02 | ED_ITS ---
HPI - General Adult General Chief complaint: General Medical Stated complaint: ?strep throat Time Seen by Provider: 05/22/24 00:55 Source: patient Mode of arrival: ambulatory Limitations: no limitations History of Present Illness ED Provider: Opal Silva NP HPI narrative: Patient is a 48-year-old female who presents emergency department for evaluation. She reports over the past 2 weeks she has been experiencing a persistent productive cough with yellow/green phlegm, nasal congestion, facial pain, a scratchy worsened over the past few days and generalized fatigue. Reports that her grandson who she is around frequently tested positive for strep throat today. Denies fevers, chills, headache, dizziness, neck pain, neck stiffness, chest pain, shortness of breath, difficulty breathing, nausea, vomiting, abdominal pain, numbness or tingling of the extremities, genitourinary symptoms. Related Data Previous Rx's ?Medication ?Instructions ?Recorded doxycycline hyclate 100 mg tablet 100 mg PO Q12H 10 days #14 tabs 11/10/20 phenazopyridine 200 mg tablet 200 mg PO TID 3 days #9 tabs 11/10/20 (Pyridium) docusate sodium 100 mg capsule 100 mg PO BID 7 days #14 caps 04/06/21 (Colace) lidocaine 2 %-hydrocortisone 2 1 appl DC BID PRN hemmorhoids 7 04/06/21 %-aloe vera rectal kit ([place]-Alan) days #7 ea naproxen 500 mg tablet 500 mg PO BID PRN pain #20 tabs 04/06/21 naproxen 500 mg tablet 500 mg PO BID PRN pain 10 days #20 03/09/22 tabs prednisone 20 mg tablet 40 mg (2 x 20 mg) PO DAILY 5 days 03/09/22 #10 tabs erythromycin 5 mg/gram (0.5 %) eye 1 appl ophthalmic (eye) Q8H #3.5 10/16/22 ointment grams cyclobenzaprine 5 mg tablet 5 mg PO BEDTIME PRN muscle spasm 08/15/23 #10 tabs lidocaine 5 % topical patch 1 patch topical DAILY #15 ea 08/15/23 (Lidoderm) amoxicillin 875 mg-potassium 1 tab PO BID #13 tabs 05/22/24 clavulanate 125 mg tablet Allergies Allergy/AdvReac Type Severity Reaction Status Date / Time No Known Allergies Allergy Verified 05/21/24 22:35 Review of Systems Review of Systems: Yes all other systems are reviewed and are negative [facility] Past Medical History Attestation statement: The following information was validated with the patient. Source: old records reviewed Medical History High cholesterol Hypertension Surgical History H/O tubal ligation Social History Social History Unable to assess alcohol history related to: Unknown Patient Tobacco Use Status: Current everyday Tobacco user Advance Directives: No Advance Directives Information Provided: No Do you have a plan to hurt others: No Plan Physical Exam ED Vital Signs: Vital Signs - 24 hr 05/21/24 22:33 Temperature 97.9 F Pulse Rate 80 Respiratory Rate 16 Blood Pressure 165/85 H Pulse Oximetry 99 Oxygen Delivery Method Room Air BMI result Body Mass Index 34.5 Appearance: Alert.?Oriented to person, place and time. No acute distress.?Normal affect. Eyes: Pupils equal, round and reactive to light.? ENT: TM normal bilaterally. Pharynx mildly erythematous without tonsillar hypertrophy, exudates. Uvula is midline. No trismus. No drooling. Palate is soft. No palatal petechiae. Neck: Normal inspection.? Neck supple.??No cervical adenopathy CVS: Heart sounds normal. Normal heart rate and rhythm.? Pulses normal.?? Respiratory: No respiratory distress.? Lung sounds clear to auscultation bilaterally?? Abdomen: Soft and non-tender. Normoactive bowel sounds. Skin: Skin warm and dry.? Normal skin color.? ? Extremities: No lower extremity edema.? Neuro: Moves all extremities spontaneously. Sensation intact bilaterally. No motor deficits. Ambulates with normal steady gait. Medical Decision Making Medical Decision Making MDM Narrative: Patient is a 48-year-old female who presents emergency department for evaluation of fatigue, persistent cough, and sore throat as per HPI. Today COVID- 19/influenza/RSV testing are negative. 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 Discussed with patient possibility for pneumonia given the duration of her illness, CXR does not show evidence of consolidation or infiltrate. Overall she is Well- appearing, nontoxic, afebrile, no tachycardia or tachypnea/hypoxia. Speaking clear full sentences, ambulatory with steady gait. Discussed conservative treatment including rest, hydration, Tylenol/ibuprofen as needed for fever and body aches, saline nasal spray, humidifier, couu-tun-uopmban cold medication. Advised to follow-up with primary care provider as needed, discussed reasons to return back to the emergency department. All questions were answered. Patient discharged home in stable condition. Differential Diagnosis Differential Diagnoses: The differential diagnosis associated with the presentation includes ( See narrative above) Admission/Observation Consideration of admission/observation: Escalation of care including admission/observation considered ( see narrative above) Lab Data MDM Lab Attestation statement: I reviewed the patient's lab results. ( see narrative above) Labs: Lab Results 05/21/24 Range/Units 22:43 Influenza Type A (PCR) NEGATIVE (Negative) Influenza Type B (PCR) NEGATIVE (Negative) RSV RNA Qual (PCR) NEGATIVE (Negative) SARS-CoV-2 RNA (RT-PCR) NEGATIVE (Negative) S. pyogenes GrpA LACHELLE Negative (Negative) Independent Interpretation I performed an independent interpretation of an: Plain X-Ray (no Consolidation or infiltrate) Radiology Impression Discussion of test interpretation with radiology: I have reviewed the radiologist's reading. Radiologist Impression: XR/XR chest 1V IMPRESSION: Unremarkable examination. Prescription Management I considered prescription management with: Pain Medication ( acetaminophen/ibuprofen) and Antibiotic Discharge Plan Discharge Clinical Impression: Pharyngitis, Sinusitis Patient Disposition: Home, Self-Care Instructions: Pharyngitis (ED), Sinusitis (ED) Additional Instructions: Complete the entire course of antibiotics as prescribed. Be sure to rest, stay well hydrated drinking plenty of fluids, eat small frequent meals. Tyleno l/ibuprofen can be used as needed for fever/pain. Tkjd-[id number]-hmakobv cold medications may be helpful as well for symptoms. Saline nasal spray, humidifier may be helpful for nasal congestion. You may return to the emergency department with any new or worsening symptoms or concerns. Follow-up with your primary care provider as needed. Should remain out of school/ work until symptoms have resolved and have been without a fever for 24 hours without the use of Tylenol or ibuprofen. Prescriptions: New amoxicillin-pot clavulanate 875-125 mg tablet 1 tab PO BID Qty: 13 0RF No Action doxycycline hyclate 100 mg tablet 100 mg PO Q12H 10 Days Qty: 14 0RF phenazopyridine [Pyridium] 200 mg tablet 200 mg PO TID 3 Days Qty: 9 0RF naproxen 500 mg tablet 500 mg PO BID PRN (Reason: pain) 10 Days Qty: 20 0RF prednisone 20 mg tablet 40 mg PO DAILY 5 Days Qty: 10 0RF [place] Kit 2-2 % kit 1 appl DC BID PRN (Reason: hemmorhoids) 7 Days Qty: 7 0RF docusate sodium [Colace] 100 mg capsule 100 mg PO BID 7 Days Qty: 14 0RF naproxen 500 mg tablet 500 mg PO BID PRN (Reason: pain) Qty: 20 0RF cyclobenzaprine 5 mg tablet 5 mg PO BEDTIME PRN (Reason: muscle spasm) Qty: 10 0RF lidocaine [Lidoderm] 5 % adhesive patch,medicated 1 patch topical DAILY Qty: 15 0RF Rx Instructions: leave on most painful area for up to 12 hrs erythromycin 5 mg/gram (0.5 %) ointment 1 appl ophthalmic (eye) Q8H Qty: 3.5 0RF Rx Instructions: apply OD 3 X day X 5 Days Print Language: Cameroonian
--- NOTE | 2024-05-22 01:52 | PC.NURSE ---
computer in pts room not working, manual entry of mc # and med required. 5 rights trips checked before adminstration of medications.
[2024-05-22] MEDS: Amoxicillin/Potassium Clav 875 MG TABLET PO (01:54)
[2024-05-22 01:55] VITALS: BP 149/90; PULSE 78; RESP 17; TEMP 36.4; O2SAT 98
--- OUTSIDE RECORDS SUMMARY | 2024-05-23 18:12 | XMS_ITS | Data Portability ---
Author Organization [facility], [id number] Address [address] [place] [address] Assessment No assessment recorded. Plan of Treatment Reminders Order Date Submit Date Provider Last Modified By Organization Details Last Modified Time Details Appointments None record ed. Lab None record ed. Referral None record ed. Procedures None record ed. Surgeries None record ed. Imaging None record ed. Medication Orders None record ed. Patient TargetsNo targets recorded. Patient InstructionsNo instructions recorded. Reason for Referral None Reported. Procedures Surgical History Date Name Laterality Status Provider Name and Address Organization Details Recorded Time OC-UDS Rapid 5 or 10 panel Template completed Glendy [employer] 12/24/2022 11:29:56 Imaging Results None recorded. Procedure Notes None recorded. Medical Equipment None Reported. Medications Name Sig Start Date Stop Date Status Note LastModified by Organization Details LastModified Time prednisone 20 mg tablet TAKE 2 TABLETS BY MOUTH EVERY DAY FOR 5 DAYS active Not Available Not Available No t Available amlodipine 5 mg tablet TAKE 1 AND 1/2 TABLETS BY MOUTH EVERY DAY active Not Available Not Available No t Available doxycycline monohydrate 100 mg tablet TAKE 1 TABLET BY MOUTH TWICE A DAY FOR 7 DAYS active Not Available Not Available No t Available phenazopyrid ine 100 mg tablet TAKE 2 TABLETS BY MOUTH 3 TIMES A DAY active Not Available Not Available Not Available cephalexin 500 mg capsule TAKE 1 CAPSULE BY MOUTH TWICE A DAY active Not Available Not Available No t Available erythromycin 5 mg/gram (0.5 %) eye ointment APPLY TO RIGHT EYE EVERY 8 HOURS FOR 5 DAYS active Not Available Not Available No t Available ibuprofen 600 mg tablet TAKE 1 TABLET BY MOUTH THREE TIMES A DAY NEEDED FOR PAIN active Not Available Not Available No t Available naproxen 500 mg tablet TAKE 1 TABLET BY MOUTH TWICE A DAY NEEDED FOR PAIN FOR 10 DAYS active Not Available Not Available No t Available Laxative (bisacodyl) 5 mg tablet,delay ed release TAKE 2 TABS BY MOUTH RIGHT BEFORE BEGINNING BOWEL PREP FOLLOW INSTRUCTION S FROM OFFICE FOR TIMING active Not Available Not Available No t Available GaviLyte-G 236 gram-22.74 gram-6.74 gram-5.86 gram oral solution PLEASE SEE ATTACHED FOR DETAILED DIRECTIONS active Not Available Not Available N ot Available Vitals None Recorded Social History None recorded. Functional Status None recorded. Mental Status None recorded. Family History Nothing Reported. Medical History No medical history recorded. Gynecological HistoryNo gynecological history recorded. Obstetrics History GPAL:G 0 P 0 0 0 0 Past Encounters Encounter ID Performer Location Encounter Start Date Encounter Closed Date Diagnosis/Indication Diagnosis SNOMED-CT Code Diagnosis ICD10 Code [id number] [address] [place] [address] 12/01/2018 10:33:11 12/01/2018 10:53:12 [id number] [id number] [address] [place] [address] 07/26/2020 15:03:14 07/26/2020 16:41:08 [id number] [address] [place] [address] 12/01/2017 13:40:31 12/01/2017 15:58:06 [id number] [facility] [address] [place] [address] 12/24/2022 11:02:39 12/24/2022 11:34:49 History and physical examination, occupation 048974069 Z02.1 Health Concerns Section Related Observation LastModified by Organization Detai ls LastModified Time None Recorded Concern Status LastModified by Organization Details LastModified Time None Recorded Advance Directives Directive None Recorded Payers Encounter Date Sequence Insurance Name Policy Number Policy Ortega Covered Member ID Ortega Member ID Guarantor Name 12/24/2022 OC-ESCREEN Sylvia Jonas [id number] Sylvia Jonas OBGyn Episode No OBEpisode recorded.
== END 2024-05-22 01:56 | disposition home or self-care (01) ==
PROVIDERS: Emergency Provider Emergency Medicine
DX: J02.9 Acute pharyngitis, unspecified (principal); J32.9 Chronic sinusitis, unspecified; R05.9 Cough, unspecified; Z03.818 Encounter for observation for suspected exposure to other biological agents ruled out
CPT/HCPCS: 0241U; 71045; 87651; 99282; 99283

== ENCOUNTER → 2024-10-11 13:31 | Outpatient (BNVA) | payer SELFPAY | PROVIDERS: Visit Provider Physician Assistant | DX: Z02.1 Encounter for pre-employment examination (principal) ==

== ENCOUNTER 2024-11-07 08:59 | Emergency (ER) | payer SELFPAY ==
--- NOTE | ~2024-11-07 | CT_ITS ---
EXAMINATION: CTA NECK WITH CONTRAST (STROKE) CTA BRAIN WITH CONTRAST (STROKE) CLINICAL INFORMATION: Blurred vision. Pain and tingling, left skull base. COMPARISON: None available. TECHNIQUE: CTA of the head and neck was performed in the axial plane from the mediastinum to the skull vertex using 70 mL Omnipaque 350 intravenous contrast. Additional reformatted multiplanar images including maximum intensity projection MIP images are generated on the CT workstation. DLP: [address] examination was performed using dose optimization techniques as appropriate, variously including the following: *Automated exposure control *Adjustment of mA and/or kV according to patient size (this includes techniques or standardized protocols for targeted exams where dose is matched to indication/reason for exam; i.e. extremities or head) *Use of iterative reconstruction technique FINDINGS: The degree of stenosis determined by criteria similar to NASCET. Brain: No acute intracranial hemorrhage, mass effect, midline shift, hydrocephalus or herniation. Feng-white matter differentiation is normal. Posterior cranial fossa contents demonstrated no gross mass effect or hemorrhage. Craniocervical junction demonstrates normal position of the cerebellar tonsils. Sellar/suprasellar region demonstrated no gross masses. No air-fluid levels in the paranasal sinuses. Retention cysts versus polyp, left maxillary sinus. Tympanic cavities and mastoid cells are aerated. Chest CTA: Calcified plaques in the thoracic aortic arch. No focal stenosis. No intimal flap. Normal diameter. Normal enhancement pattern of the main branches. Neck CTA: Right CCA: Normal patency. No focal stenosis. No intimal flap. Right ICA: Calcified plaque. Normal patency. No focal stenosis. No intimal flap. Left CCA: Normal patency. No focal stenosis. No intimal flap. Left ICA: Normal patency. No focal stenosis. No intimal flap. V1/V2 segments: Normal patency. No focal stenosis. No intimal flap. Origin directly from the subclavian arteries. Codominant vertebral arteries. Brain CTA: Anterior cerebral circulation: ICAs: Normal patency. No focal stenosis. No abrupt cut off. MCA's: Normal patency. No focal stenosis. No abrupt cut off. Bifurcation/trifurcation demonstrated no vascular irregularity. ACAs: Normal patency. No focal stenosis. No abrupt cut off. Ophthalmic arteries are patent without vascular irregularity at the origin. Anterior clinic and artery is patent and normal. Left posterior communicating artery is patent and normal. Posterior cerebral circulation: V3/V4 segments: Normal patency. No focal stenosis. No intimal flap. Posterior inferior cerebral arteries are patent and normal. Anterior inferior cerebral arteries are patent and normal. Basilar artery is patent without focal stenosis or intimal flap. Superior cerebellar arteries are patent and normal. electrophonic engineer: No focal stenosis. No abrupt cut off. Hypoplastic left P1. Ancillary findings: Nonspecific prominent cervical lymph nodes, bilaterally. Main cerebral venous sinuses are patent without intraluminal filling defects. CT/CT angio head neck IMPRESSION: No high degree stenosis. No dissection. No main cerebral artery occlusion or embolus. No aneurysm, cerebral. Nonspecific prominent cervical lymph nodes. This critical test result is communicated to: emergency physician on November 07, 2024 at 12:22 PM Electronically signed by: Toney Tony MD 11/07/2024 12:39 PM EDT
[2024-11-07 09:18] VITALS: BP 153/93; PULSE 76; RESP 16; TEMP 36.4; O2SAT 97; BMI 38.5
--- NOTE | 2024-11-07 09:30 | ED_ITS ---
HPI - Neck Pain/Injury General Chief Complaint: Neck Pain/Injury Stated Complaint: Neck pain Time Seen by Provider: 11/07/24 11:09 Source: patient Mode of arrival: ambulatory Limitations: no limitations History of Present Illness ED Provider: BERTA MEJIA PA-C HPI Narrative: 48 year old female with pmhx significant for HTN and HLD presents to the ED today for evaluation of atraumatic left sided neck pain x2 weeks. Reports pain is localized to the base of her skull on the left. Describes this as severe. No radiation. Pain is worse with movement of the neck primarily to the right along with palpation of the area. 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 She find temporary relief in pain with Motrin. She has trialed tylenol without improvement. She has not trialed any muscle relaxers. Admits to intermittent tingling in both hands. Admits to blurred vision x months - she follows with ophthalmology and wears glasses. No other vision changes including vision loss or double vision. Denies injury/trauma/neck manipulations. Denies AC. Denies fever, chills, chest pain, jaw pain, photophobia, phonophobia, N/V. Related Data Previous Rx's ?Medication ?Instructions ?Recorded doxycycline hyclate 100 mg tablet 100 mg PO Q12H 10 days #14 tabs 11/10/20 phenazopyridine 200 mg tablet 200 mg PO TID 3 days #9 tabs 11/10/20 (Pyridium) docusate sodium 100 mg capsule 100 mg PO BID 7 days #14 caps 04/06/21 (Colace) lidocaine 2 %-hydrocortisone 2 1 appl HI BID PRN hemmorhoids 7 04/06/21 %-aloe vera rectal kit ([place]-Alan) days #7 ea naproxen 500 mg tablet 500 mg PO BID PRN pain #20 tabs 04/06/21 naproxen 500 mg tablet 500 mg PO BID PRN pain 10 days #20 03/09/22 tabs prednisone 20 mg tablet 40 mg (2 x 20 mg) PO DAILY 5 days 03/09/22 #10 tabs erythromycin 5 mg/gram (0.5 %) eye 1 appl ophthalmic (eye) Q8H #3.5 10/16/22 ointment grams cyclobenzaprine 5 mg tablet 5 mg PO BEDTIME PRN muscle spasm 08/15/23 #10 tabs lidocaine 5 % topical patch 1 patch topical DAILY #15 ea 08/15/23 (Lidoderm) amoxicillin 875 mg-potassium 1 tab PO BID #13 tabs 05/22/24 clavulanate 125 mg tablet ujairblfqp-jiqfzjoxnqpnr-fkkyqcpg 1 cap PO Q8H PRN headache #7 caps 11/07/24 50 mg-300 mg-40 mg capsule (Fioricet) cyclobenzaprine 5 mg tablet 5 mg PO Q8H #7 tabs 11/07/24 lidocaine 5 % topical patch 1 patch topical DAILY #15 ea 11/07/24 (Lidoderm) Allergies Allergy/AdvReac Type Severity Reaction Status Date / Time No Known Allergies Allergy Verified 11/07/24 09:21 Review of Systems 2 Review of Systems: Yes all other systems are reviewed and are negative [facility] Past Medical History Attestation statement: The following information was validated with the patient. Source: old records reviewed and nursing notes reviewed Medical History High cholesterol Hypertension Surgical History H/O tubal ligation Social History Social History Unable to assess alcohol history related to: Unknown Patient Tobacco Use Status: Current everyday Tobacco user Use of substances other than those prescribed or required for medical reasons: Unknown Advance Directives: No Advance Directives Information Provided: Yes Do you have a plan to hurt others: No Plan Physical Exam 2 Vital Signs: Vital Signs: Last Vital Signs Temp 97.6 F 11/07/24 14:12 Pulse 76 11/07/24 14:12 Resp 16 11/07/24 14:12 BP 153/93 H 11/07/24 14:12 Pulse Ox 97 11/07/24 14:12 O2 Del Method Room Air 11/07/24 14:12 BMI result Body Mass Index 38.5 Hypertensive, vitals otherwise WNL General: Well appearing, in no acute distress. Skin: Warm, dry, intact. No rashes or lesions. Head: Normocephalic, atraumatic. no scalp tenderness, no palpable temporal artery. EENT: Hearing is intact b/l. Conjunctiva clear. Sclera is anicteric. PERRLA. EOM intact. Moist mucous membranes.? Neck: FROM intact to c spine w/ pain endorsed to base of left neck with rightward motion. minimal palpable spasm to left cervical paraspinal musculature, ttp. no midline tenderness or step off deformity. Cardiac: Chest wall symmetric. RRR Lungs: Normal respiratory effort without accessory muscle use. CTA bilaterally Back: No midline spinous or paraspinal tenderness. No step off deformity. Ext: Upper and lower extremities atraumatic, without tenderness, deformity, swelling or erythema Neuro: AOx3. Normal speech. NIH 0. Strength 5/5 intact throughout. No saddle anesthesia. Sensation intact to light touch. NV intact distally. Ambulating with steady gait. Course Course Course Narrative: 48 yo female no sig PMH here with c/o severe L sided neck pain atraumatic that has made her feel tingling in both hands, headaches and blurry vision. She has no weakness. She denies trauma, neck manipulation, falls. Not on thinners at this time labs and possible CT imaging this is a RAPID medical screening exam the rest of the history and physical exam is to be done by the main provider. SEDA 11/07/24 930am Reevaluation(s) Reevaluation #1: CBC without leukocytosis or left shift. No anemia. H&H stable. Chemistry without acute electrolyte abnormality requiring intervention. No BRANDON. Beta quant undetectable. Not . CT angiogram head/neck unremarkable. No aneurysm, dissection no high-degree stenosis, no need cerebral artery occlusion or embolus. > I offered Flexeril as I suspect patient has some sort of muscle spasm versus occipital headache. Patient states that she will be driving home today so she has opted out of receiving Flexeril. She is agreeable with trialing Fioricet. > on re-evaluation, she reports significant improvement in pain after receiving Fioricet. I will send this to her pharmacy. I will also send a muscle relaxer for her to trial along with lidocaine patch. She is agreeable to this. Will follow up outpatient. Patient has remained stable throughout ED visit today. Discussed worrisome signs and symptoms and when to return to the ED. All questions answered at this time. Patient is agreeable with disposition and stable for discharge. Medications Administered Discontinued Medications Generic Name Dose Route Start Last Admin Trade Name Freq PRN Reason Stop Dose Admin Acetaminophen/Butalbital/Caffeine 1 tab 11/07/24 11:41 11/07/24 12:06 Butalb/Acetamin/Caff 50/325/40 Tablet PO 11/07/24 11:42 1 tab ONCE ONE Administration Iohexol 100 ml 11/07/24 12:13 11/07/24 12:14 Iohexol 350 Mg/Ml 100 Ml Infus..Btl IV 11/07/24 12:14 100 ml ONCE ONE Administration Lidocaine 1 patch 11/07/24 11:41 11/07/24 12:02 Lidocaine 4 % Patch Adh..Patch TRANSDERMA 11/07/24 11:42 1 patch ONCE ONE Administration Protocol Medical Decision Making Medical Decision Making [facility] Narrative: 48 year old female with pmhx significant for HTN and HLD presents to the ED today for evaluation of atraumatic left sided neck pain x2 weeks. she is hypertensive, vitals are otherwise wnl. she is well appearing and in NAD. On exam, there is FROM intact to c spine w/ pain endorsed to base of left neck with rightward motion. minimal palpable spasm to left cervical paraspinal musculature, ttp. no midline tenderness or step off deformity. her exam is nonfocal. NIH 0. cerebellum is intact. Differential diagnosis includes anemia, electrolyte abnormality, dehydration, viral syndrome, migraine vs tension type headache, occipital neuralgia, cervical sprain/strain, cervical spasm. No headache red flags. Neurologic exam without evidence of meningismus. No focal neurologic findings. Presentation not consistent with acute intracranial bleed including SAH. Presentation not consistent with acute ORANGE PICKER infection including meningitis or brain abscess. Temporal arteritis unlikely, as is acute angle closure glaucoma given history and physical findings. Presentation not consistent with other acute, emergent causes of headache at this time. Plan to treat symptomatically with pain medication. No indication for LP at this time. Plan: labs, viral swabs, pain control, CTA head/neck, reassessment Differential Diagnosis Differential Diagnoses: The differential diagnosis associated with the presentation includes as above. Admission/Observation not indicated. Lab Data [facility] Lab Attestation statement: I reviewed the patient's lab results. as above. 11/07/24 09:52 11/07/24 09:52 Labs: Lab Results 11/07/24 Range/Units 09:52 WBC 7.4 (4.8-10.8) X10*3/uL RBC 4.69 (4.20-5.50) X10*6/uL Hgb 12.5 (12.0-16.0) g/dl Hct 39.0 (37.0-47.0) % MCV 83.2 (80.0-98.0) fL MCH 26.7 L (27.0-33.0) pg MCHC 32.1 (31.0-35.0) g/dl RDW 14.5 (11.0-16.0) % Plt Count 390 (160-400) X10*3/uL MPV 9.0 L (9.4-12.3) fL Immature Gran % (Auto) 0.1 (0.0-0.4) % Neut % (Auto) 64.0 (45-73) % Lymph % (Auto) 23.6 (20-40) % [place] % (Auto) 7.6 (2-11) % Eos % (Auto) 3.5 (0-4) % Baso % (Auto) 1.2 (0-2) % Lymph # (Auto) 1.8 (1.2-4.9) X10*3/uL [place] # (Auto) 0.6 (0.1-1.2) X10*3/uL Eos # (Auto) 0.3 (0.0-0.4) X10*3/uL Baso # (Auto) 0.1 (0.0-0.2) X10*3/uL Abs Immat Gran (auto) 0.01 (0.00-0.03) X10*3/uL Absolute Neuts (auto) 4.7 (2.0-8.3) x10*3/uL Absolute Nucleated RBC 0.000 (0.0-0.012) X10*3/uL Nucleated RBC % (auto) 0.0 (0.0-0.2) /100WBC Sodium 140 (135-145) mmol/L Potassium 3.6 (3.3-5.1) mmol/L Chloride 108 (96-108) mmol/L Carbon Dioxide 24 (22-29) mmol/L Anion Gap 12 (12-20) BUN 17 H (9-16) mg/dL Creatinine 0.64 (0.5-1.4) mg/dL Estim Creat Clear Calc 117.0 Estimated GFR > 60 Random Glucose 96 (60-115) mg/dL Calcium 9.1 (8.4-10.2) mg/dL Beta HCG, Quant < 2 mIU/mL Independent Interpretation I performed an independent interpretation of an: CT Scan Interpretation: CTA head/neck without ischemia or stenosis Radiology Impression Discussion of test interpretation with radiology: I have reviewed the radiologist's reading. Radiologist Impression: Date of Service: 11/07/24 Procedure(s): CT angio head neck Accession Number(s): [id number] cc: Physician,None ; Berta Mejia~ Report Number: [id number]: Total DLP = 0.00 mGy-cm EXAMINATION: CTA NECK WITH CONTRAST (STROKE) CTA BRAIN WITH CONTRAST (STROKE) CLINICAL INFORMATION: Blurred vision. Pain and tingling, left skull base. COMPARISON: None available. TECHNIQUE: CTA of the head and neck was performed in the axial plane from the mediastinum to the skull vertex using 70 mL Omnipaque 350 intravenous contrast. Additional reformatted multiplanar images including maximum intensity projection MIP images are generated on the CT workstation. DLP: [address] examination was performed using dose optimization techniques as appropriate, variously including the following: *Automated exposure control *Adjustment of mA and/or kV according to patient size (this includes techniques or standardized protocols for targeted exams where dose is matched to indication/reason for exam; i.e. extremities or head) *Use of iterative reconstruction technique FINDINGS: The degree of stenosis determined by criteria similar to NASCET. Brain: No acute intracranial hemorrhage, mass effect, midline shift, hydrocephalus or herniation. Feng-white matter differentiation is normal. Posterior cranial fossa contents demonstrated no gross mass effect or hemorrhage. Craniocervical junction demonstrates normal position of the cerebellar tonsils. Sellar/suprasellar region demonstrated no gross masses. No air-fluid levels in the paranasal sinuses. Retention cysts versus polyp, left maxillary sinus. Tympanic cavities and mastoid cells are aerated. Chest CTA: Calcified plaques in the thoracic aortic arch. No focal stenosis. No intimal flap. Normal diameter. Normal enhancement pattern of the main branches. Neck CTA: Right CCA: Normal patency. No focal stenosis. No intimal flap. Right ICA: Calcified plaque. Normal patency. No focal stenosis. No intimal flap. Left CCA: Normal patency. No focal stenosis. No intimal flap. Left ICA: Normal patency. No focal stenosis. No intimal flap. V1/V2 segments: Normal patency. No focal stenosis. No intimal flap. Origin directly from the subclavian arteries. Codominant vertebral arteries. Brain CTA: Anterior cerebral circulation: ICAs: Normal patency. No focal stenosis. No abrupt cut off. MCA's: Normal patency. No focal stenosis. No abrupt cut off. Bifurcation/trifurcation demonstrated no vascular irregularity. ACAs: Normal patency. No focal stenosis. No abrupt cut off. Ophthalmic arteries are patent without vascular irregularity at the origin. Anterior clinic and artery is patent and normal. Left posterior communicating artery is patent and normal. Posterior cerebral circulation: V3/V4 segments: Normal patency. No focal stenosis. No intimal flap. Posterior inferior cerebral arteries are patent and normal. Anterior inferior cerebral arteries are patent and normal. Basilar artery is patent without focal stenosis or intimal flap. Superior cerebellar arteries are patent and normal. 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 No abrupt cut off. Hypoplastic left P1. Ancillary findings: Nonspecific prominent cervical lymph nodes, bilaterally. Main cerebral venous sinuses are patent without intraluminal filling defects. CT/CT angio head neck IMPRESSION: No high degree stenosis. No dissection. No main cerebral artery occlusion or embolus. No aneurysm, cerebral. Nonspecific prominent cervical lymph nodes. This critical test result is communicated to: emergency physician on November 07, 2024 at 12:22 PM Electronically signed by: Toney Tony MD 11/07/2024 12:39 PM EDT External Record Review External record reviewed: Inpatient record Prescription Management I considered prescription management with: Pain Medication Chronic Conditions Patient?s care impacted by: Hypertension Social Determinants Patient?s care significantly limited by Social Determinants of Health including: Other Social Determinant of Health Critical Care Time Critical Care Time Critical Care Time: No Discharge Plan Discharge Clinical Impression: Headache, Spasm of cervical paraspinous muscle Patient Disposition: Home, Self-Care Instructions: Muscle Spasm (ED), General Headache (ED) Additional Instructions: You have been evaluated in the Emergency Department today for pain at the base of your left skull. Your evaluation did not show evidence of medical conditions requiring emergent intervention at this time, and your pain improved with medication in the ED. Sometimes it is difficult to explain the cause of headache/ neck pain but the negative workup today is reassuring. Your physical exam is concerning for muscle pain/ spasm. I am sending rhona to your pharmacy for headache. Do not take this for more than 2-3 days as this can cause rebound headache. Flexeril is a muscle relaxer. Take this at night as it makes you drowsy. Do not drive, drink alcohol, or operate machinery while taking it. Lidoderm patches are numbing patches. Apply to painful areas. Please follow up with your primary care physician within two days. Return to the Emergency Department if you experience worsening or uncontrolled pain, vision changes, recurrent vomiting, difficulty with normal activities, abnormal behavior, difficulty walking, numbness, weakness, or any other concerning symptoms. Prescriptions: New lidocaine [Lidoderm] 5 % adhesive patch,medicated 1 patch topical DAILY Qty: 15 0RF Rx Instructions: leave on most painful area for up to 12 hrs cyclobenzaprine 5 mg tablet 5 mg PO Q8H Qty: 7 0RF meljxmxpnw-[id number] [Fioricet] 50-300-40 mg capsule 1 cap PO Q8H PRN (Reason: headache) Qty: 7 0RF No Action doxycycline hyclate 100 mg tablet 100 mg PO Q12H 10 Days Qty: 14 0RF phenazopyridine [Pyridium] 200 mg tablet 200 mg PO TID 3 Days Qty: 9 0RF naproxen 500 mg tablet 500 mg PO BID PRN (Reason: pain) 10 Days Qty: 20 0RF prednisone 20 mg tablet 40 mg PO DAILY 5 Days Qty: 10 0RF [place] Kit 2-2 % kit 1 appl HI BID PRN (Reason: hemmorhoids) 7 Days Qty: 7 0RF docusate sodium [Colace] 100 mg capsule 100 mg PO BID 7 Days Qty: 14 0RF naproxen 500 mg tablet 500 mg PO BID PRN (Reason: pain) Qty: 20 0RF cyclobenzaprine 5 mg tablet 5 mg PO BEDTIME PRN (Reason: muscle spasm) Qty: 10 0RF lidocaine [Lidoderm] 5 % adhesive patch,medicated 1 patch topical DAILY Qty: 15 0RF Rx Instructions: leave on most painful area for up to 12 hrs erythromycin 5 mg/gram (0.5 %) ointment 1 appl ophthalmic (eye) Q8H Qty: 3.5 0RF Rx Instructions: apply OD 3 X day X 5 Days amoxicillin-pot clavulanate 875-125 mg tablet 1 tab PO BID Qty: 13 0RF Referrals: [facility] Neuro/Sleep [Provider Group] Interventions: ED Discharge Assessment Last Done: 11/07/24 14:12 Discharge Date/Time: 11/07/24 14:12 Print Language: Dominican
[2024-11-07 10:00] LABS: MANUAL DIFF FLAG NO
[2024-11-07 10:02] LABS: Basophils Absolute Auto 0.1 X10*3/uL (0.0-0.2); Basophils Percent Auto 1.2 % (0-2); Eosinophils Absolute Auto 0.3 X10*3/uL (0.0-0.4); Eosinophils Percent Auto 3.5 % (0-4); Hemoglobin 12.5 g/dl (12.0-16.0); Imm Gran Abs Auto 0.01 X10*3/uL (0.00-0.03); Imm Gran Pct Auto 0.1 % (0.0-0.4); Lymphocytes Absolute Auto 1.8 X10*3/uL (1.2-4.9); Lymphocytes Percent Auto 23.6 % (20-40); Mean Corpuscular HGB Conc 32.1 g/dl (31.0-35.0); Mean Corpuscular Hemoglobin 26.7 pg (27.0-33.0); Mean Corpuscular Volume 83.2 fL (80.0-98.0); Monocytes Absolute Auto 0.6 X10*3/uL (0.1-1.2); Monocytes Percent Auto 7.6 % (2-11); Neutrophils Absolute Auto 4.7 x10*3/uL (2.0-8.3); Platelet Count 390 X10*3/uL (160-400); Red Blood Count 4.69 X10*6/uL (4.20-5.50); Red Cell Distribution Width 14.5 % (11.0-16.0); White Blood Count 7.4 X10*3/uL (4.8-10.8)
[2024-11-07 10:21] LABS: Anion Gap 12 (12-20); Blood Urea Nitrogen 17 mg/dL (9-16); Calcium 9.1 mg/dL (8.4-10.2); Carbon Dioxide 24 mmol/L (22-29); Chloride 108 mmol/L (96-108); Estimated Glomerular Filt Rate > 60; Glucose Random 96 mg/dL (60-115); Potassium 3.6 mmol/L (3.3-5.1); Sodium 140 mmol/L (135-145)
[2024-11-07] MEDS: Lidocaine 4 % Patch ADH..PATCH 1 PATCH TRANSDERMA (12:02)
[2024-11-07] MEDS: Butalb/Acetamin/Caff 50/325/40 TABLET 1 TAB PO (12:06)
[2024-11-07] MEDS: iohexoL 350 MG/ML 100 ML INFUS..BTL IV (12:14)
[2024-11-07 12:20] LABS: HCG Quantitative < 2 mIU/mL
--- OUTSIDE RECORDS SUMMARY | 2024-11-07 12:34 | XMS_ITS | Clinical Summary ---
Author Organization [facility] Address [address] [place] [address] Phone Care Team Providers Care Water Analyst Name Role Phone Kaila Godwin MD Primary Care Prov ider Allergies Active Allergy Reactions Criticality Noted Date Comments Pollen Extracts 08/02/2014 Medications acetaminophen (TYLENOL) 325 mg tablet Take 650 mg by mouth every 6 hours as needed. Active bisacodyL (DULCOLAX) 5 mg EC tablet Take 2 tabs by mouth right before beginning bowel prep. Follow instructions given by office for timing. 3 Active ibuprofen (ADVIL,MOTRIN) 200 mg tablet Take 1 tablet (200 mg total) by mouth every 6 hours as needed. Active nicotine (NICODERM CQ) 14 mg/[address] 1 Patch onto the skin every 24 hours. 3 Active rosuvastatin (CRESTOR) 5 mg tablet Take 1 tablet (5 mg total) by mouth 1 (one) time each day. 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 Essential hypertension 12/09/2017 Hypertriglyceridemia 12/09/2017 Fibromyalgia 05/29/2015 Depression, major, in remission (CMS/HCC V24) Hyperlipidemia with target LDL less than 160 05/2014 Overview (06/03/2024): IMO update Immunizations Name Administration Dates Next Due Influenza Quadravalent, MDCK , 0.5ml, preservative free (Flucelvax) 6mo and older 05/17/2023 Influenza Quadravalent, MDCK , 0.5ml, with preservative (Flucelvax) 6mo and older 04/01/2022 Moderna SARS-CoV-2 COVID-19, mRNA, LNP-S, preservative free 02/23/2021,01/25/2021 Pfizer SARS-CoV-2 COVID-19, mRNA, LNP-S, preservative free 08/10/2021 Tdap Tetanus diptheria acell ular pertussis (Boostrix; Adacel) 7yo and older 02/02/2018 Surgical History Surgery Date Site/Laterality Comments TUBAL LIGATION PROCEDURE: HISTORICAL TUBAL LIGATION CHOLECYSTECTOMY 2004 PROCEDURE: [place] CHOLECYSTECTOMY Medical History Medical History Date Comments Hypertriglyceridemia 12/09/2017 DX:Hypertri glyceridemia 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 blood clot, D [place] Mother Alive dm, htn, hyperl ipid Social History Tobacco Use Types Packs/Day Years Used Date Smoking Tobacco: Former Cigarettes Q uit: 03/24/2012 Smokeless Tobacco: Never Alcohol Use Standard Drinks/Week Comments Yes 0 (1 standard drink = 0.6 oz pur e alcohol) Comments Unknown Sex and Gender Information Value Date Recorded Sex Assigned at Female 12/04/2022 8:38 AM EDT Legal Sex Female 6:15 PM EST Gender Identity Female 12/04/2022 8:38 AM EDT Sexual Orientation Straight 12/04/2022 8: 38 AM EDT Obstetrics History Last Filed Vital Signs Vital Sign Reading Time Taken Comments Blood Pressure 135/81 06/20/2024 8:45 AM EST Pulse 103 06/20/2024 8:45 AM EST Temperature 37.4 ??C (99.3 ??F) 06/20/2024 8:45 AM ES T Respiratory Rate 18 06/20/2024 8:45 AM EST Oxygen Saturation 100% 06/20/2024 8:45 AM EST Inhaled Oxygen Concentration - - Weight 88.5 kg (195 lb) 06/20/2024 8:45 AM EST Height 157.5 cm (5' 2 ) 06/20/2024 8:45 AM EST Body Mass Index 35.67 06/20/2024 8:45 AM EST Plan of Treatment Health Maintenance Due Date Last Done Comments Hepatitis B Vaccines (1 of 3 - 19+ 3-dose series) 12/11/1995 Depression Screening 05/22/2022 Social Influencers of Health Screening 05/22/2022 Breast Cancer Screening 10/02/2023 10/01/2021, 07/03 COVID-19 Vaccine ( season) 2024 06/03/2023, 08/10/2021, 02/23/2021, Additional history exists Hypertension/CHF/CAD Annual BMP Blood Test 06/20/2025 06/20/2024, 03/28/2023 Colorectal Cancer Screening: Colonoscopy 05/04/2026 05/04/2023 Cervical Cancer Screening: HPV 03/08/2027 03/08/2022 DTaP,Tdap,and Td Vaccines (2 - Td or Tdap) 02/03/2028 02/02/2018 Cholesterol Screening (Lipid Panel) 03/28/2028 03/28/2023 HIV Screening Completed 03/08/2022 Hepatitis C Screening Completed 03/08/2022 Influenza Vaccine Completed 03/18/2024, , 04/01/2022 HIB Vaccines Aged Out No longer eligi ble based on patient's age to complete this topic HPV Vaccines Aged Out No longer eligi ble based on patient's age to complete this topic Hepatitis A Vaccines Aged Out No long er eligible based on patient's age to complete this topic IPV Vaccines Aged Out No longer eligi ble based on patient's age to complete this topic MMR Vaccines Aged Out No longer eligi ble based on patient's age to complete this topic Meningococcal ACWY Vaccine Aged Out N o longer eligible based on patient's age to complete this topic Meningococcal B Vaccine Aged Out No l onger eligible based on patient's age to complete this topic Pneumococcal Vaccine: Pediatrics (0 to 5 Years) and At-Risk Patients (6 to 64 Years) Aged Out No longer eligible based on patient's age to complete this topic RSV Immunization Patients Under 20 months Aged Out No longer eligible based on patient's age to complete this topic Varicella Vaccines Aged Out No longer eligible based on patient's age to complete this topic Procedures Procedure Name Priority Date/Time Associated Diagnosis Comments COMPREHENSIVE METABOLIC PANEL STAT 06/20/2024 9:03 AM EST COLONOSCOPY Routine 05/04/2023 LIPID PANEL Routine 03/28/2023 HPV Routine 03/08/2022 HEPATITIS C SCREENING Routine 03/08/2022 HIV SCREENING Routine 03/08/2022 SCREENING MAMMOGRAPHY BI 2-VIEW BREAST INC CAD Routine 10/01/2021 7:47 AM EDT Encounter for screening mammogram for malignant neoplasm of breast from Last 3 Months or Most Recently Relevant to Health Maintenance Results * (ABNORMAL) Comprehensive metabolic panel (06/20/2024 9:03 AM EST) Sodium 134 133 - 145 mmol/L LAB CHEMISTRY METHOD 06/20/2024 10:06 AM [facility] Potassium 4.3 3.5 - 5.5 mmol/L LAB CHEMISTRY METHOD 06/20/2024 10:06 AM [facility] Chloride 106 96 - 110 mmol/L LAB CHEMISTRY METHOD 06/20/2024 10:06 AM [facility] CO2 23 21 - 32 mmol/L LAB CHEMISTRY METHOD 06/20/2024 10:06 AM [facility] Anion Gap 5 3 - 11 LAB CHEMISTRY METHOD 06/20/2024 10:06 AM [facility] Glucose 129(H) 70 - 100 mg/dL LAB CHEMISTRY METHOD 06/20/2024 10:06 AM [facility] BUN 17 5 - 25 mg/dL LAB CHEMISTRY METHOD 06/20/2024 10:06 AM [facility] Creatinine 0.82 0.50 - 1.10 mg/dL LAB CHEMISTRY METHOD 06/20/2024 10:06 AM [facility] eGFR 89 >=60 mL/min/1. 73m2 LAB CHEMISTRY METHOD 06/20/2024 10:06 AM [facility] Comment:Calculation based on the??Chronic Kidney Disease Epidemiology Collaboration (CKD-EPI) equation refit??without adjustment for race. BUN/Creatinine Ratio 20.7 LAB CHEMISTRY METHOD 06/20/2024 10:06 AM [facility] Calcium 9.1 8.5 - 10.5 mg/dL LAB CHEMISTRY METHOD 06/20/2024 10:06 AM [facility] AST (SGOT) 18 10 - 42 unit/L LAB CHEMISTRY METHOD 06/20/2024 10:06 AM [facility] ALT (SGPT) 24 10 - 60 unit/L LAB CHEMISTRY METHOD 06/20/2024 10:06 AM [facility] Alkaline Phosphatase 123(H) 42 - 121 unit/L LAB CHEMISTRY METHOD 06/20/2024 10:06 AM [facility] Total Protein 8.0 6.0 - 8.0 g/dL LAB CHEMISTRY METHOD 06/20/2024 10:06 AM [facility] Albumin 4.0 3.2 - 5.0 g/dL LAB CHEMISTRY METHOD 06/20/2024 10:06 AM [facility] Total Bilirubin 0.7 0.0 - 1.4 mg/dL LAB CHEMISTRY METHOD 06/20/2024 10:06 AM [facility] Blood Venous blood specimen / Unknown Venipuncture / Unknown 06/20/2024 9:03 AM EST 06/20/2024 9:38 AM EST us Luis Alberto Guevara MD LAB BLOOD ORDERABLES Final Resu lt [facility] [address] [place] [address], [place] [phone] * Colonoscopy (05/04/2023) [facility] Colonoscopy NO INTERPRETATION , ABSTRACTED Anatomical Region Laterality Modality Other [facility] Provider HEALTH MAINTENANCE Final Result * (ABNORMAL) Lipid panel (03/28/2023) [facility] LDL/HDL Ratio 7(A) 0 - 4 Triglycerides 256(A) 0 - 150 mg/dL Cholesterol 295(A) 0 - 200 mg/dL HDL 45 >=40 mg/dL LDL Cholesterol 199(A) 0 - 100 mg/dL Blood Venous blood specimen / Unknown [facility] Provider LAB BLOOD ORDERABLES Dianne l Result * Cervical Cancer Screening: HPV (03/08/2022) [facility] Cervical Cancer Screening: HPV NEGATIVE, ABSTRACTED [facility] Provider HEALTH MAINTENANCE Final Result * HIV Screening (03/08/2022) [facility] HIV Screening ABSTRACTED [facility] Provider HEALTH MAINTENANCE Final Result * Hepatitis C Screening (03/08/2022) [facility] Hepatitis C Screening ABSTRACTED [facility] Provider HEALTH MAINTENANCE Final Result * SCREENING MAMMOGRAPHY BI 2-VIEW BREAST INC CAD (10/01/2021 7:47 AM EDT) Anatomical Region Laterality Modality Radiographic Beverly ging 09/29/2021 2:19 PM EDT Narrative 10/01/2021 5:26 PM EDT This is a summary report. The complete report is available in the patient's medical record. If you cannot access the medical record, please contact the sending organization for a detailed fax or copy. BILATERAL 2D and 3D DIGITAL SCREENING MAMMOGRAM History: Routine screening. ??No current breast complaints. ?? Comparison: Mammogram from 07/03/2020 Technique: Bilateral full-field digital 2D and 3D mammography was performed using standard CC and MLO projections, left breast cleavage view CAD was used to evaluate this mammogram. Findings: Density: ??There are scattered areas of fibroglandular density-B RIGHT: No suspicious masses, groups of microcalcification or areas of architectural distortion identified. Stable typically benign parenchymal asymmetries LEFT: No suspicious masses, groups of microcalcifications or areas of architectural distortion identified. Stable typically benign parenchymal asymmetries IMPRESSION: : 1. ??No mammographic evidence of malignancy. BI-RADS Category 2 benign findings Recommendation: Routine annual screening mammography is recommended Procedure Note Ronald Collado MD - 06/01/2022 This is a summary report. The complete report is available in thepatient's medical record. If you cannot access the medical record, pleasecontact the sending organization for a detailed fax or copy. BILATERAL 2D and 3D DIGITAL SCREENING MAMMOGRAM History: Routine screening. No current breast complaints. Comparison: Mammogram from 07/03/2020 Technique: Bilateral full-field digital 2D and 3D mammography wasperformed using standard CC and MLO projections, left breast cleavageview CAD was used to evaluate this mammogram. Findings: Density: There are scattered areas of fibroglandular density-B RIGHT: No suspicious masses, groups of microcalcification or areas ofarchitectural distortion identified. Stable typically benign parenchymalasymmetries LEFT: No suspicious masses, groups of microcalcifications or areas ofarchitectural distortion identified. Stable typically benign parenchymalasymmetries IMPRESSION: : 1. No mammographic evidence of malignancy. BI-RADS Category 2 benign findings Recommendation: Routine annual screening mammography is recommended Janiya LITTLE IMG XR PROCEDURES Final Result from Last 3 Months or Most Recently Relevant to Health [place] [address] [facility] [employer] Care Teams Water Analyst Relationship Specialty Start Date End Date Kaila Godwin MD [address] [place] [address] [phone] PCP - General Internal Medicine 01/11/22
[2024-11-07 14:12] VITALS: BP 153/93; PULSE 76; RESP 16; TEMP 36.4; O2SAT 97
== END 2024-11-07 14:12 | disposition home or self-care (01) ==
PROVIDERS: Physician Assistant Medical; Emergency Provider Emergency Medicine
DX: R51.9 Headache, unspecified (principal); M62.838 Other muscle spasm; H53.8 Other visual disturbances; R20.2 Paresthesia of skin; I10 Essential (primary) hypertension; E78.5 Hyperlipidemia, unspecified; Z79.899 Other long term (current) drug therapy
CPT/HCPCS: 36415; 70496; 70498; 80048; 84702; 85025; 99284; Q9967

== ENCOUNTER → 2024-11-07 11:22 | Outpatient (BNV) | payer MEDICAID, SELFPAY | PROVIDERS: Emergency Provider Emergency Medicine; Visit Provider Radiology Diagnostic Radiology | DX: M54.81 Occipital neuralgia (principal) | CPT/HCPCS: 70496; 70498 ==